=== PATIENT | female | born 1990 ===

== ENCOUNTER 2022-02-19 15:39 | Outpatient (REF) | payer OTHER, SELFPAY ==
[2022-02-22 06:12] LABS: HPV mRNA E6/E7 rflx Not Detected (Not Detected)
== END 2022-02-19 15:40 | disposition home or self-care (01) ==
LOC: HO.LAB 15:39
PROVIDERS: Visit Provider Obstetrics & Gynecology
DX: Z01.419 Encounter for gynecological examination (general) (routine) without abnormal findings (principal); Z11.51 Encounter for screening for human papillomavirus (HPV)
CPT/HCPCS: 87624; 88142